=== PATIENT | female | born 1935 | race Caucasian/White ===

== ENCOUNTER 2017-02-07 11:03 | Emergency (ER) | payer BC ==
[~2017-02-07] VITALS: Ht 165.1 cm; Wt 78.5 kg
[~2017-02-07 11:03] MED LIST: AMLOPIDINE PO; ASPI-481 PO; BENAZEPRIL PO; DOCU-144 PO; GABAPENTIN PO; INSU100C SQ; INSU100C5 SQ; METF500T4 PO; OMEP20CA16 PO; PRAV40TA76 PO
[2017-02-07 11:14] VITALS: Ht 165.1 cm; Wt 78.5 kg
[2017-02-07] MEDS ORDERED: IBUP-1542 PO (13:06)
[2017-02-07] MEDS ORDERED: IBUPROFEN 800 MG TAB PO ONE (13:30)
--- NOTE | 2017-02-07 13:37 | ERD ---
ER Documentation Chief Complaint Date/Time DATE: 02/07/17 TIME: 13:36 Chief Complaint Complains of breast /chest pain x 2 days HPI Patient is a 81-year-old female with hypertension and diabetes who presents with left-sided chest pain. She says that the pain is in her breast and she feels a breast mass. The symptoms started 3 days ago and have been constant. She has had no treatment as of yet. The daughter says that she had a mammogram 1 year ago which was normal. Upon review of old medical records this is the patient's fourth visit to the ER since 2008. Her primary doctor is Dr. Horn. ROS All systems reviewed and are negative except as per history of present illness. Medications Home Meds Active Scripts Ibuprofen* (Motrin*) 600 Mg Tab, 600 MG PO Q8, #30 TAB Prov:BAUTISTA MCCAIN MD 02/07/17 Reported Medications [Amlopidine] No Conflict Check, 2.5 MG PO DAILY 05/22/13 Docusate Sodium* (Colace*) 100 Mg Capsule, 100 MG PO HS 05/22/13 Omeprazole* (Omeprazole*) 20 Mg Capsule.dr, 20 MG PO AM 05/22/13 Insulin Lispro (Humalog) 100 U/Ml Cartridge, 10 SQ BID 05/22/13 Insulin Glargine,Hum.rec.anlog (Lantus) 100 U/Ml Cartridge, 40 SQ HS 05/22/13 [Benazepril ] No Conflict Check, 20 MG PO HS 05/22/13 Pravastatin Sodium* (Pravastatin Sodium*) 40 Mg Tablet, 40 MG PO DAILY 05/22/13 Metformin* (Glucophage*) 500 Mg Tab, 500 MG PO BID 05/22/13 [Gabapentin] No Conflict Check, 100 PO BID 02/11/13 Aspirin (Baby Aspirin) 81 Mg Tab.chew, 81 MG PO DAILY 02/11/13 Allergies Allergies: Coded Allergies: No Known Drug Allergy (Verified Allergy, Unknown, 06/07/15) PMhx/Soc History of Surgery: Yes (HYSTERECTOMY) Anesthesia Reaction: No Hx Neurological Disorder: No Hx Respiratory Disorders: No Hx Cardiac Disorders: Yes (HTN) Hx Psychiatric Problems: No Hx Miscellaneous Medical Probl: No Hx Alcohol Use: No Hx Substance Use: No Hx Tobacco Use: No Smoking Status: Never smoker FmHx Family History: No coronary disease Physical Exam Vitals Vital Signs Date Time Temp Pulse Resp B/P Pulse Ox O2 Delivery O2 Flow Rate FiO2 02/07/17 11:14 98.4 80 20 137/58 98 Physical Exam Const: No acute distress Head: Atraumatic Eyes: Normal Conjunctiva ENT: Normal External Ears, Nose and Mouth. Neck: Full range of motion..~ No meningismus. Resp: Clear to auscultation bilaterally Cardio: Regular rate and rhythm, no murmurs Abd: Soft, non tender, non distended. Normal bowel sounds Skin: Breast lump palpated in the left breast which is different than the right, no nipple discharge or puckering at this time Back: No midline or flank tenderness Ext: No cyanosis, or edema Neur: Awake and alert Psych: Normal Mood and Affect Results 24 hrs Current Medications Medications (Trade) Dose Ordered Sig/Hazel Route PRN Reason Start Time Stop Time Status Last Admin Dose Admin Ibuprofen (Motrin) 800 mg ONCE ONCE PO 02/07/17 13:30 02/07/17 13:31 DC 02/07/17 13:31 Procedures/MDM Patient is a 81-year-old female who presents with a breast mass. I am concerned given her age about possible breast cancer and I talked to the patient and daughter about this. She will likely need a biopsy of this lesion. I told her to follow-up with the primary doctor within 24-48 hours and she can return if symptoms worsen. Ibuprofen was given for pain. I doubt acute coronary syndrome, pneumonia, pneumothorax, pulmonary embolism, or aortic dissection. Departure Diagnosis: Primary Impression: Breast mass Additional Impression: Breast pain Condition: Fair Patient Instructions: Breast Mass, Uncertain Cause Additional Instructions: Llame al doctor MAANA y fiordaliza catrachita NAVARRO PARA DENTRO DE 1-2 JOHNSON.Dgale a la secretaria que nosotros le instruimos hacer esta navarro.Avise o llame si saha condicin se empeora antes de la navarro. Regresa aqui si peor o no mejor. BAUTISTA MCCAIN MD Feb 07, 2017 13:37
[2017-02-07 14:00] VITALS: BP 132/58; PULSE 70; RESP 18; TEMP 98.4
== END 2017-02-07 14:04 | disposition home or self-care (01) ==
LOC: E/R 11:03
DX: N63 Unspecified lump in breast (principal); I10 Essential (primary) hypertension; E11.9 Type 2 diabetes mellitus without complications; Z79.4 Long term (current) use of insulin; Z79.82 Long term (current) use of aspirin; Z79.84 Long term (current) use of oral hypoglycemic drugs
CPT/HCPCS: 99283; Z7610

== ENCOUNTER 2017-04-18 13:21 | Emergency (ER) | payer BC ==
[~2017-04-18] VITALS: Ht 162.6 cm; Wt 77.8 kg
[~2017-04-18 13:21] MED LIST changes: +IBUP-1542 PO
[2017-04-18 13:23] VITALS: Ht 162.6 cm; Wt 77.8 kg
--- NOTE | 2017-04-18 15:10 | ERD ---
ER Documentation Chief Complaint Chief Complaint Pt presents with R shouldeer pain after GLF, no KO. HPI 82y/o female patient with with history of hypertension and diabetes, presents to the emergency department with daughter c/o sudden onset of right arm pain, constant, after a mechanical fall last night at home. The pain is dull, rated 7/ 10, radiated to the right arm. The symptoms are associated with decreased range of motion. Aggravating factors: Movement and direct pressure. Alleviating factors: Rest. Denies any precipitating factors like dizziness, palpitations, weakness, she also denies headaches, fever, chills, N/V/D. No history of previous episodes. Treatment attempted: None. Previous evaluation: None. History was given by patient. ROS SYSTEMIC symptoms: no fever, chills, no night sweats, no weight loss EYE symptoms: No blurred vision, no eye discharge OTOLARYNGEAL symptoms: No hearing loss. No ear pain, no sore throat CARDIOVASCULAR symptoms: No chest pain or discomfort, no palpitations. PULMONARY symptoms: No dyspnea, no cough, no wheezing. GASTROINTESTINAL symptoms: No abdominal pain, no nausea, no vomiting, no diarrhea MUSCULOSKELETAL symptoms: Per HPI NEUROLOGY symptoms: No confusion, no syncope, no numbness or tingling. SKIN: No rashes Medications Home Meds Active Scripts Ibuprofen* (Motrin*) 600 Mg Tab, 600 MG PO Q8, #30 TAB Prov:BAUTISTA MCCAIN MD 02/07/17 Reported Medications [Amlopidine] No Conflict Check, 2.5 MG PO DAILY 05/22/13 Docusate Sodium* (Colace*) 100 Mg Capsule, 100 MG PO HS 05/22/13 Omeprazole* (Omeprazole*) 20 Mg Capsule.dr, 20 MG PO AM 05/22/13 Insulin Lispro (Humalog) 100 U/Ml Cartridge, 10 SQ BID 05/22/13 Insulin Glargine,Hum.rec.anlog (Lantus) 100 U/Ml Cartridge, 40 SQ HS 05/22/13 [Benazepril ] No Conflict Check, 20 MG PO HS 05/22/13 Pravastatin Sodium* (Pravastatin Sodium*) 40 Mg Tablet, 40 MG PO DAILY 05/22/13 Metformin* (Glucophage*) 500 Mg Tab, 500 MG PO BID 05/22/13 [Gabapentin] No Conflict Check, 100 PO BID 02/11/13 Aspirin (Baby Aspirin) 81 Mg Tab.chew, 81 MG PO DAILY 02/11/13 Allergies Allergies: Coded Allergies: No Known Drug Allergy (Verified Allergy, Unknown, 04/18/17) PMhx/Soc History of Surgery: Yes (HYSTERECTOMY) Anesthesia Reaction: No Hx Neurological Disorder: No Hx Respiratory Disorders: No Hx Cardiac Disorders: Yes (HTN) Hx Psychiatric Problems: No Hx Miscellaneous Medical Probl: No (DM) Hx Alcohol Use: No Hx Substance Use: No Hx Tobacco Use: No Physical Exam Vitals Vital Signs Date Time Temp Pulse Resp B/P Pulse Ox O2 Delivery O2 Flow Rate FiO2 04/18/17 13:23 98.5 75 18 129/63 98 Physical Exam Const: Alert, oriented, vital signs are stable, the patient looks in mild distress due to pain. Head: Atraumatic Eyes: Normal Conjunctiva ENT: Normal External Ears, Nose and Mouth. Neck: Full range of motion..~ No meningismus. Resp: Clear to auscultation bilaterally Cardio: Regular rate and rhythm, no murmurs Abd: Soft, non tender, non distended. Normal bowel sounds Skin: No petechiae or rashes Back: No midline or flank tenderness Ext: Right arm: Normal inspection, tenderness to palpation over shoulder area , decreased range of motion for extension. Neurovascular exam intact Neur: Awake and alert Psych: Normal Mood and Affect Results 24 hrs Current Medications Medications (Trade) Dose Ordered Sig/Hazel Route PRN Reason Start Time Stop Time Status Last Admin Dose Admin Ketorolac Tromethamine (Toradol) 15 mg ONCE STAT IM 04/18/17 15:49 04/18/17 15:50 DC 04/18/17 15:58 [place] [id number] Radiology Main Line: [phone] DIAGNOSTIC IMAGING REPORT Patient: ROSA M SHEARER : 1935 Age: 82 Sex: F MR #: [id number] DOS: 04/18/17 [facility]0 Ordering MD: EDEN RUANO MD Location: FTE Room/Bed: PROCEDURE: XR right humerus CLINICAL INDICATION: Right arm pain, fall TECHNIQUE: 2 images of the right humerus COMPARISON: Radiographs of the right shoulder same day FINDINGS: The bones are somewhat osteopenic. There is no evidence of acute fracture. There is a small chronic appearing density along the undersurface of the acromion. There is mild acromioclavicular and mild glenohumeral osteoarthrosis. There are also significant degenerative changes at the elbow at the edge of the field of view, incompletely assessed. Visualized right lung is grossly clear. Soft tissues are grossly unremarkable. IMPRESSION: 1. No radiographic evidence of acute osseous abnormality noting background osteopenia. 2. Mild acromioclavicular and glenohumeral osteoarthrosis. RPTAT: UU .Cheikh Wells MD, MD Date Time Electronically viewed and signed by .Cheikh Wells MD, on 04/18/2017 15: 56 .K/ CC: EDEN RUANO MD [place] [id number] Radiology Main Line: [phone] DIAGNOSTIC IMAGING REPORT Patient: ROSA M SHEARER : 1935 Age: 82 Sex: F MR #: [id number] DOS: 04/18/17 0000 Ordering MD: EDEN RUANO MD Location: FT Room/Bed: PROCEDURE: XR right Shoulder. CLINICAL INDICATION: Right shoulder pain TECHNIQUE: 3 views of the right shoulder are available for review. COMPARISON: None available FINDINGS: The bones are somewhat osteopenic. There is no evidence of acute fracture. There is a small chronic appearing density along the undersurface of the acromion. There is mild acromioclavicular and mild glenohumeral osteoarthrosis. Visualized right lung is grossly clear. Soft tissues are grossly unremarkable. IMPRESSION: 1. No radiographic evidence of acute osseous abnormality noting background osteopenia. 2. Mild acromioclavicular and glenohumeral osteoarthrosis. RPTAT: UU .Cheikh Wells MD, MD Date Time Electronically viewed and signed by .Cheikh Wells MD, MD on 04/18/2017 15: 55 .K/ CC: EDEN RUANO MD Procedures/[facility] 82y/o female patient with history of diabetes, presents to the ED c/o right arm pain after mechanical fall that occurred last night without loss of consciousness or head trauma. Vital signs stable, Physical exam revealed tenderness on right arm but no deformity, neurovascular exam intact. Differential diagnosis include but not limited to: Fracture, dislocation, shoulder contusion. Pertinent Data: . Radiology: No evidence of fracture or dislocation of right shoulder/humerus Physical examination and clinical presentation consistent most likely with right arm contusion. During the ED course the patient remained stable, no new complaints. received treatment with Toradol 15 mg IM presenting overall improvement of the symptoms. Results and clinical impression discussed with who agrees with management. The patient is stable to be treated outpatient and will be discharged home with a Rx for acetaminophen and Motrin as needed Side effects of prescribed medications (headache, rash, nausea, vomiting, diarrhea) were reviewed. Side effects of prescribed NSAID medication (GI distress, edema, bleeding, HTN) were reviewed. The patient was instructed to follow up with the primary care provider in the next 48h. If symptoms persist, worsen or new symptoms develop, then patient should return to the ED immediately. Instructions explained and given to patient in Mal[place]ian with acknowledgment and demonstrated understanding. Disclaimer: Inadvertent spelling and grammatical errors are likely due to EHR/ dictation software use and do not reflect on the overall quality of patient care. Also, please note that the electronic time recorded on this note does not necessarily reflect the actual time of the patient encounter. Departure Diagnosis: Primary Impression: Contusion of shoulder, right Condition: Stable Additional Instructions: Muchas ortega por [facility] para saha servicio. Esperamos que en saha visita a la hina de emergencia saha problema medico haya sido solucionado y que se sienta mucho mejor. Para estar seguros que saha mejoria sigue en proceso, le pedimos el favor de hacer catrachita april de seguimiento medico con saha doctor primario en los proximos 2-4 boogie. Lleve con usted estos documentos y las medicinas recetadas. Si nancy sintomas empeoran y no puede yoshi a saha doctor, por favor regrese a hina de emergencia. En mian que usted no tenga un mdico de atencin primaria: Llame al mdico o clnica comunitaria de referencia que aparece abajo fab las horas de consultorio para hacer catrachita april para que le vean. CLINICAS: [facility] [phone] [facility] [phone] [address] [facility] [phone] [facility] [phone] [address] [place] [id number] [phone] [facility]. [phone] EDEN ALVARENGA MD Apr 18, 2017 15:10
[2017-04-18] MEDS ORDERED: KETOROLAC 15 MG INJ IM STA (15:49)
--- NOTE | 2017-04-18 15:56 | RADRPT ---
PROCEDURE: XR right Shoulder. CLINICAL INDICATION: Right shoulder pain TECHNIQUE: 3 views of the right shoulder are available for review. COMPARISON: None available FINDINGS: The bones are somewhat osteopenic. There is no evidence of acute fracture. There is a small chronic appearing density along the undersurface of the acromion. There is mild acromioclavicular and mild glenohumeral osteoarthrosis. Visualized right lung is grossly clear. Soft tissues are grossly unremarkable. IMPRESSION: 1. No radiographic evidence of acute osseous abnormality noting background osteopenia. 2. Mild acromioclavicular and glenohumeral osteoarthrosis. RPTAT: UU .Cheikh Wells MD, MD Date Time Electronically viewed and signed by .Cheikh Wells MD, on 04/18/2017 15:55 .K/
--- NOTE | 2017-04-18 15:56 | RADRPT ---
PROCEDURE: XR right humerus CLINICAL INDICATION: Right arm pain, fall TECHNIQUE: 2 images of the right humerus COMPARISON: Radiographs of the right shoulder same day FINDINGS: The bones are somewhat osteopenic. There is no evidence of acute fracture. There is a small chronic appearing density along the undersurface of the acromion. There is mild acromioclavicular and mild glenohumeral osteoarthrosis. There are also significant deg enerative changes at the elbow at the edge of the field of view, incompletely assessed. Visualized right lung is grossly clear. Soft tissues are grossly unremarkable. IMPRESSION: 1. No radiographic evidence of acute osseous abnormality noting background osteopenia. 2. Mild acromioclavicular and glenohumeral osteoarthrosis. RPTAT: UU .Cheikh Wells MD, Date Time Electronically viewed and signed by .Cheikh Wells MD, on 04/18/2017 15:56 .K/
[2017-04-18] MEDS ORDERED: IBUP400T22 PO (16:41)
== END 2017-04-18 17:07 | disposition home or self-care (01) ==
LOC: FTE 13:21
DX: S40.011A Contusion of right shoulder, initial encounter (principal); I10 Essential (primary) hypertension; E11.9 Type 2 diabetes mellitus without complications; W18.39XA Other fall on same level, initial encounter; Y92.009 Unspecified place in unspecified non-institutional (private) residence as the place of occurrence of the external cause; Z79.4 Long term (current) use of insulin; Z79.84 Long term (current) use of oral hypoglycemic drugs; Z79.82 Long term (current) use of aspirin
CPT/HCPCS: 73030; 73060; 96372; 99284; J1885; Z7610

== ENCOUNTER 2017-12-14 16:13 | Emergency (ER) | END 2017-12-14 18:22 | disposition home or self-care (01) ==